=== PATIENT | male | born 1955 | race Caucasian/White ===

== ENCOUNTER 2016-07-07 23:59 | Inpatient (IN) | payer OTHER ==
[~2016-07-07] VITALS: Ht 167.6 cm; Wt 77.0 kg
[2016-07-08 00:37] LABS: CHLORIDE 95 mEq/L (99-109); INTER. NORMALIZED RATIO 1.3; POTASSIUM 4.4 mEq/L (3.7-5.4); PROTHROMBIN TIME 13.2 (9.2-11.2); PTT 32.4 (25-32); SODIUM 133 mEq/L (136-147)
[2016-07-08 00:38] LABS: GLUCOSE 106 mg/dL (70-99)
[2016-07-08 00:40] LABS: ANION GAP 12 MEQ/L (2-14)
[2016-07-08 00:43] LABS: UREA NITROGEN (BUN) 34 mg/dL (9-23)
[2016-07-08 00:52] LABS: GFR ESTIMATE (CALCULATED) > 59 mL/min/; TROP-I INTERPRETATION NEGATIVE; TROPONIN-I 0.02 ng/mL (0.0-0.30)
[2016-07-08 01:03] LABS: BASOPHIL COUNT 0.1 K/uL (0-0.1); EOSINOPHIL (%) 0.2 % (0-5); HEMATOCRIT 43.1 % (38.0-50.0); IMMATURE GRANULOCYTE (%) 2.1 % (0.0-0.7); IMMATURE GRANULOCYTE COUNT 0.4 K/uL; INSTRUMENT ABS NEUTROPHIL CT 15.7 K/uL; LYMPHOCYTE COUNT 1.2 K/uL (1.0-2.8); MCH 30.5 PG (29.0-34.0); MCHC 32.9 G/DL (30.0-36.0); MCV 92.7 FL (86-99); MEAN PLAT.VOLUME 11.1 uM^3 (9.0-12.4); MONOCYTE COUNT 1.3 K/uL (0-0.8); NEUTROPHIL (%) 83.8 % (45-76); NEUTROPHIL COUNT 15.7 K/uL (1.8-6.4); PLATELET COUNT 338 K/uL (156-360); RBC DIS.WIDTH-CV 13.4 % (11.8-14.6); RBC DIS.WIDTH-SD 45.2 % (39-53); RED BLOOD COUNT 4.65 M/uL (4.00-5.50); WHITE BLOOD COUNT 18.7 K/uL (4.1-10.2)
[2016-07-08 01:22] LABS: BASE EXCESS 2.6 mEq/L (-3 to +3); BICARBONATE 28.9 mEq/L (22-26); CARBOXY HGB 1.6 % (0-5); METHEMOGLOBIN 1.1 % (0-1.5); PCO2 50 mm Hg (35-45); PO2 87 mm Hg (80-100); pH 7.37 (7.35-7.45)
[2016-07-08 01:23] LABS: COMMENTS - BLOOD GASES C+; DEVICE NC; O2 FLOW 4 L/MIN; SITE RR; TOTAL RESP RATE 22 resp/min
[2016-07-08 04:18] LABS: HDL CHOLESTEROL 37 MG/DL (Desirable>=40); LDL CHOLESTEROL 80 mg/dL (Desirable<100); NON-HDL CHOLESTEROL 100 mg/dL (Desirable<160); TOTAL CHOLESTEROL 137 mg/dL (Desirable<200); TRIGLYCERIDES 99 MG/DL (Normal: <150)
[2016-07-08 05:15] LABS: ADD MIUA? YES; BILIRUBIN NEGATIVE; BLOOD MODERATE; COLOR YELLOW ((YELLOW)); GLUCOSE (STRIP) NEGATIVE; KETONES 20; LEUKOCYTES NEGATIVE; NITRITE NEGATIVE; PROTEIN (STRIP) 30; SPECIFIC GRAVITY 1.021 (1.000-1.030); UROBILINOGEN 0.2 MG/DL (0.2-1.0)
[2016-07-08 05:27] LABS: BACTERIA RARE /HPF; EPITHELIAL CELLS RARE /HPF; HYALINE CASTS 30-40 /LPF; MUCUS 2+ /LPF; RED BLOOD CELLS 0-5 /HPF (0-5); UCUL ADDED? NO
[2016-07-08 07:36] LABS: Estimated Average Glucose 111 mg/dL (70-123); HEMOGLOBIN A1c (GLYCOHEMOGLOB) 5.5 % HGB (Below 5.7)
[2016-07-08 07:38] LABS: INTERNAL CONTROL VALID? YES
[2016-07-08 07:39] LABS: INTERNAL CONTROL VALID? YES
[2016-07-08] MEDS ORDERED: DECADRON2 MG PO (07:52)
[2016-07-08] MEDS ORDERED: PROAIR HFA8.5 GM IH (07:52)
[2016-07-08 11:35] LABS: HEMATOCRIT 39.9 % (38.0-50.0); MCHC 32.6 G/DL (30.0-36.0); MCV 95.2 FL (86-99); MEAN PLAT.VOLUME 10.6 uM^3 (9.0-12.4); PLATELET COUNT 269 K/uL (156-360); RBC DIS.WIDTH-CV 13.4 % (11.8-14.6); RBC DIS.WIDTH-SD 47.2 % (39-53); RED BLOOD COUNT 4.19 M/uL (4.00-5.50); WHITE BLOOD COUNT 16.4 K/uL (4.1-10.2)
[2016-07-08 11:49] LABS: CHLORIDE 100 mEq/L (99-109); POTASSIUM 4.5 mEq/L (3.7-5.4); SODIUM 138 mEq/L (136-147)
[2016-07-08 11:51] LABS: GLUCOSE 102 mg/dL (70-99)
[2016-07-08 11:52] LABS: ANION GAP 9 MEQ/L (2-14)
[2016-07-08 11:53] LABS: TOTAL BILIRUBIN 0.6 mg/dL (0.0-1.0)
[2016-07-08 11:55] LABS: ALKALINE PHOSPHATASE 106 IU/L (3-129); GFR ESTIMATE (CALCULATED) > 59 mL/min/
[2016-07-08 11:56] LABS: DIRECT BILIRUBIN 0.3 mg/dL (0.0-0.3); UREA NITROGEN (BUN) 29 mg/dL (9-23)
[2016-07-08 14:17] VITALS: BP 154/93
[2016-07-08 23:06] VITALS: BP 165/72
[2016-07-09 03:54] VITALS: BP 156/75
[2016-07-09 07:08] VITALS: BP 141/79
[2016-07-09 07:16] LABS: HEMATOCRIT 39.7 % (38.0-50.0); MCH 30.6 PG (29.0-34.0); MCHC 31.7 G/DL (30.0-36.0); MCV 96.4 FL (86-99); MEAN PLAT.VOLUME 10.8 uM^3 (9.0-12.4); PLATELET COUNT 244 K/uL (156-360); RBC DIS.WIDTH-CV 13.2 % (11.8-14.6); RBC DIS.WIDTH-SD 46.8 % (39-53); RED BLOOD COUNT 4.12 M/uL (4.00-5.50); WHITE BLOOD COUNT 14.4 K/uL (4.1-10.2)
[2016-07-09 07:35] LABS: ANION GAP 10 MEQ/L (2-14); CHLORIDE 100 MEQ/L (99-109); GFR ESTIMATE (CALCULATED) > 59 mL/min/; GLUCOSE 76 mg/dL (70-99); POTASSIUM 3.6 MEQ/L (3.7-5.4); SAMPLE HEMOLYSIS CHECK 0; SAMPLE ICTERIC CHECK 0; SAMPLE LIPEMIA CHECK 0; SODIUM 137 MEQ/L (136-147); UREA NITROGEN (BUN) 18 mg/dL (9-23)
[2016-07-09 16:26] VITALS: BP 134/63
[2016-07-09 19:42] VITALS: BP 130/92
[2016-07-09 23:54] VITALS: BP 154/88
[2016-07-10 03:53] VITALS: BP 155/96
[2016-07-10 07:05] LABS: ANION GAP 7 MEQ/L (2-14); CHLORIDE 103 MEQ/L (99-109); GFR ESTIMATE (CALCULATED) > 59 mL/min/; POTASSIUM 4.3 MEQ/L (3.7-5.4); SAMPLE HEMOLYSIS CHECK 0; SAMPLE ICTERIC CHECK 0; SAMPLE LIPEMIA CHECK 0; SODIUM 140 MEQ/L (136-147); UREA NITROGEN (BUN) 15 mg/dL (9-23)
[2016-07-10 07:06] LABS: GLUCOSE 122 mg/dL (70-99)
[2016-07-10 07:11] LABS: HEMATOCRIT 35.8 % (38.0-50.0); MCH 31.4 PG (29.0-34.0); MCHC 32.7 G/DL (30.0-36.0); MEAN PLAT.VOLUME 11.1 uM^3 (9.0-12.4); PLATELET COUNT 266 K/uL (156-360); RBC DIS.WIDTH-CV 13.3 % (11.8-14.6); RBC DIS.WIDTH-SD 47.7 % (39-53); RED BLOOD COUNT 3.73 M/uL (4.00-5.50)
[2016-07-10 07:12] LABS: WHITE BLOOD COUNT 8.9 K/uL (4.1-10.2)
[2016-07-10 07:33] VITALS: BP 169/99
[2016-07-10 15:16] VITALS: BP 173/88
[2016-07-10 16:51] VITALS: BP 125/73
[2016-07-10 22:40] VITALS: BP 169/91
[2016-07-11 05:15] VITALS: BP 142/82
[2016-07-11 06:07] LABS: MCH 31.8 PG (29.0-34.0); MCHC 33.2 G/DL (30.0-36.0); MEAN PLAT.VOLUME 11.2 uM^3 (9.0-12.4); PLATELET COUNT 324 K/uL (156-360); RBC DIS.WIDTH-CV 13.4 % (11.8-14.6); RBC DIS.WIDTH-SD 47.3 % (39-53); RED BLOOD COUNT 3.96 M/uL (4.00-5.50); WHITE BLOOD COUNT 10.8 K/uL (4.1-10.2)
[2016-07-11 06:37] LABS: ANION GAP 8 MEQ/L (2-14); CHLORIDE 102 MEQ/L (99-109); GFR ESTIMATE (CALCULATED) > 59 mL/min/; GLUCOSE 110 mg/dL (70-99); POTASSIUM 4.3 MEQ/L (3.7-5.4); SAMPLE HEMOLYSIS CHECK 0; SAMPLE ICTERIC CHECK 0; SAMPLE LIPEMIA CHECK 0; SODIUM 142 MEQ/L (136-147); UREA NITROGEN (BUN) 15 mg/dL (9-23)
[2016-07-11 07:30] VITALS: BP 162/99
[2016-07-11 10:54] VITALS: BP 129/74
[2016-07-11] MEDS ORDERED: PREDNISONE10 M1 PO (12:57)
[2016-07-11] MEDS ORDERED: CEFDINIR300 MG PO (12:57)
[2016-07-11] MEDS ORDERED: ULTRA-LIGHT RO1 EACH MC (13:02)
== END 2016-07-11 14:52 | disposition home or self-care (01) | DRG 871 ==
LOC: EDBD 23:59 → EME 23:59 → 5EAST 07-08 03:33 → EDOF 07-08 03:33 → 5EAST 07-08 14:10
PROVIDERS: Emergency Medicine; Hospitalist
DX: A41.9 Sepsis, unspecified organism (principal); J96.01 Acute respiratory failure with hypoxia; J18.9 Pneumonia, unspecified organism; G93.40 Encephalopathy, unspecified; E83.52 Hypercalcemia; C34.90 Malignant neoplasm of unspecified part of unspecified bronchus or lung; Z87.891 Personal history of nicotine dependence; Z90.2 Acquired absence of lung [part of]; E86.0 Dehydration; J44.1 Chronic obstructive pulmonary disease with (acute) exacerbation; J45.901 Unspecified asthma with (acute) exacerbation; J44.0 Chronic obstructive pulmonary disease with (acute) lower respiratory infection; J20.9 Acute bronchitis, unspecified
CPT/HCPCS: 36600; 70450; 70553; 71020; 71250; 80048; 80048 91; 80061; 80076; 81003; 82140; 82803; 83036; 84484; 85025; 85027; 85610; 85730; 87040; 87070; 87205; 87449; 93005; 94640; 94640 76; 94760; 94799; 99202; 99281; 99285; J0360; J0456; J0696; J1650; J2920; J2930; J7030; J7050; J8540